=== PATIENT | female | born 1950 | race Native Hawaiian/Other Pacific Islander ===

== ENCOUNTER 2018-10-16 12:36 | Outpatient (CLI) | payer OTHER, MEDICARE ==
[~2018-10-16 12:36] MED LIST: BINOSTO70 MG OR; CONZIP100 MG OR; CYCL10TA35 PO; FLUOXETINE40 MG PO; GEMFIBROZIL PO; LISI20TA11 PO; LOVASTATIN40 MG OR; ZORVOLEX35 MG PO
== END 2018-10-16 22:26 | disposition home or self-care (01) ==
LOC: MAMMO 12:36
DX: I10 Essential (primary) hypertension (principal); Z12.31 Encounter for screening mammogram for malignant neoplasm of breast

== ENCOUNTER 2019-09-25 08:23 | Outpatient (CLI) | payer OTHER, MEDICARE | END 2019-09-25 19:37 | disposition home or self-care (01) | LOC: RAD 08:23 | DX: E04.1 Nontoxic single thyroid nodule (principal); R00.2 Palpitations; R07.89 Other chest pain; Z13.0 Encounter for screening for diseases of the blood and blood-forming organs and certain disorders involving the immune mechanism | CPT/HCPCS: 36415; 83615; 84075; 84436; 84443; 84479; 84484; 86900; 86901 ==

== ENCOUNTER 2019-11-25 11:09 | Outpatient (CLI) | payer OTHER, MEDICARE | END 2019-11-25 21:50 | disposition home or self-care (01) | LOC: RAD 11:09 | DX: R06.02 Shortness of breath (principal) ==

== ENCOUNTER 2020-06-24 10:05 | Outpatient (CLI) | payer OTHER | END 2020-06-24 19:49 | disposition home or self-care (01) | LOC: MAMMO 10:05 | DX: Z12.31 Encounter for screening mammogram for malignant neoplasm of breast (principal) ==

== ENCOUNTER 2020-09-03 08:14 | Outpatient (CLI) | payer OTHER | END 2020-09-03 19:26 | disposition home or self-care (01) | LOC: US 08:14 | DX: R10.84 Generalized abdominal pain (principal); R10.2 Pelvic and perineal pain ==

== ENCOUNTER 2020-12-08 01:58 | Emergency (ER) | payer OTHER ==
[~2020-12-08] VITALS: Ht 162.6 cm; Wt 71.7 kg
[2020-12-08 03:19] LABS: POTASSIUM 3.5 mmol/L (3.6-5.2); SODIUM 138 mmol/L (136-145)
[2020-12-08 03:21] LABS: PLATELET COUNT 339 K/uL (152-353)
[2020-12-08 04:30] VITALS: BP 147/87; TEMP 98
== END 2020-12-08 04:40 | disposition home or self-care (01) ==
LOC: ED 01:58
PROVIDERS: Emergency Medicine Emergency Medical Services
DX: U07.1 COVID-19 (principal); J12.89 Other viral pneumonia; J44.1 Chronic obstructive pulmonary disease with (acute) exacerbation
CPT/HCPCS: 36415; 80048; 84484; 85027; 93005; 96360; 96365; 96375; 99284; J0696; J2930

== ENCOUNTER 2021-01-02 19:43 | Emergency (ER) | payer OTHER ==
[~2021-01-02] VITALS: Ht 162.6 cm; Wt 71.7 kg
[2021-01-02 19:43] VITALS: TEMP 98.9
[2021-01-02 20:47] LABS: PLATELET COUNT 446 K/uL (152-353)
[2021-01-02 20:55] LABS: POTASSIUM 3.5 mmol/L (3.6-5.2)
[2021-01-02 21:53] VITALS: BP 114/72
== END 2021-01-02 21:53 | disposition home or self-care (01) ==
LOC: ED 20:11
PROVIDERS: Emergency Medicine Emergency Medical Services
DX: K52.89 Other specified noninfective gastroenteritis and colitis (principal)
CPT/HCPCS: 80053; 81000; 83690; 85027; 96360; 96375; 99284; J2405; J3490

== ENCOUNTER → 2021-09-22 | Emergency (ER) | payer OTHER ==
[~2021-09-22] VITALS: Ht 162.6 cm; Wt 72.1 kg
[2021-09-22 02:28] LABS: PLATELET COUNT 373 K/uL (152-353)
[2021-09-22 03:40] VITALS: BP 129/76; TEMP 98.5
== END ==
LOC: ED 01:22
PROVIDERS: Emergency Medicine Emergency Medical Services
DX: J20.9 Acute bronchitis, unspecified (principal); J01.80 Other acute sinusitis
CPT/HCPCS: 85027; 87502; 87635; 87651; 96360; 96365; 96375; 99284; J0696; J1885; U0003

== ENCOUNTER 2021-10-13 08:11 | Outpatient (CLI) | payer OTHER | END 2021-10-13 20:30 | disposition home or self-care (01) | LOC: MAMMO 08:11 | PROVIDERS: ATTEND Nurse Practitioner Family | DX: M81.0 Age-related osteoporosis without current pathological fracture (principal); Z12.31 Encounter for screening mammogram for malignant neoplasm of breast ==

== ENCOUNTER 2023-05-13 19:01 | Emergency (ER) | payer OTHER ==
[~2023-05-13] VITALS: Ht 162.6 cm; Wt 69.9 kg
[2023-05-13 19:10] VITALS: TEMP 98.4
[2023-05-13 21:30] VITALS: BP 130/71
== END 2023-05-13 21:30 | disposition home or self-care (01) ==
LOC: ED 19:01
DX: U07.1 COVID-19 (principal); B34.9 Viral infection, unspecified
CPT/HCPCS: 87502; 87635; 96361; 96374; 96375; 99284; J1885; J2405; U0003

== ENCOUNTER 2023-06-10 15:09 | Emergency (ER) | payer OTHER ==
[~2023-06-10] VITALS: Ht 162.6 cm; Wt 70.3 kg
[2023-06-10 15:15] VITALS: BP 155/83; TEMP 98.5
[2023-06-10 15:52] LABS: PLATELET COUNT 289 K/uL (152-353)
[2023-06-10 15:58] LABS: POTASSIUM 4.3 mmol/L (3.6-5.2)
== END 2023-06-10 16:55 | disposition left against medical advice (07) ==
LOC: ED 15:09
PROVIDERS: Family Medicine
DX: J40 Bronchitis, not specified as acute or chronic (principal); R07.9 Chest pain, unspecified; H92.02 Otalgia, left ear; R51.9 Headache, unspecified
CPT/HCPCS: 80053; 84484; 85027; 87635; 93005; 94664; 96365; 96374; 99284; J2930; U0003